=== PATIENT | male | born 1995 | race Two or more races ===

== ENCOUNTER 2021-06-23 06:33 | Emergency (ER) | payer OTHER ==
[~2021-06-23] VITALS: Ht 180.3 cm; Wt 122.5 kg
== END 2021-06-23 10:07 ==
LOC: ER 06:33
DX: K29.60 Other gastritis without bleeding (principal)

== ENCOUNTER 2022-04-21 20:16 | Emergency (ER) | payer OTHER ==
[~2022-04-21] VITALS: Ht 180.3 cm; Wt 90.7 kg
[2022-04-21] MEDS ORDERED: PANADOL (21:45)
== END 2022-04-22 | disposition home or self-care (01) ==
LOC: ER 20:16
DX: K29.70 Gastritis, unspecified, without bleeding (principal); K90.49 Malabsorption due to intolerance, not elsewhere classified

== ENCOUNTER 2023-08-05 06:54 | Emergency (ER) | payer OTHER ==
[~2023-08-05] VITALS: Ht 180.3 cm; Wt 117.9 kg
[~2023-08-05 06:54] MED LIST: AZITHROMYCIN250 MG PO; CLARITIN10 M1 PO; PANADOL
[2023-08-05] MEDS ORDERED: ONDANSETRON HCL 2 MG/ML VIAL IV ONE (08:45)
[2023-08-05] MEDS ORDERED: 0.9 % SODIUM CHLORIDE 1,000 ML IV SCH (08:45)
[2023-08-05 09:06] LABS: HEMATOCRIT 44.5 % (39.0-48.0); HEMOGLOBIN 14.5 g/dL (13-16.00); MEAN CELL VOLUME 75.9 fL (80.0-100.00); MEAN CORPUSCULAR HEMOGLOBIN 24.7 pg (27.00-32.0); MEAN CORPUSCULAR HGB CONC 32.6 g/dl (32.0-36.0); PLATELET COUNT 223 K/uL (150-450); RED BLOOD COUNT 5.86 M/uL (4.00-6.00); RED CELL DISTRIBUTION WIDTH 15.4 % (11.5-14.5)
[2023-08-05 09:25] LABS: CALCIUM 9.2 mg/dL (8.5-10.1); CREATININE SERUM 1.05 mg/dL (0.70-1.30); GFR 85.38; POTASSIUM 3.7 mEq/L (3.5-5.1)
== END 2023-08-05 15:36 | disposition home or self-care (01) ==
LOC: ER 06:54
PROVIDERS: Emergency Medicine
DX: K52.89 Other specified noninfective gastroenteritis and colitis (principal)